=== PATIENT | male | born 1955 | race Caucasian/White ===

== ENCOUNTER → 2022-04-25 | Day surgery (SDC) | payer OTHER ==
[~2022-04-25] VITALS: Ht 182.9 cm; Wt 81.6 kg
[~2022-04-25] MED LIST: ASPIRIN EC81 MG PO; LIPITOR20 MG PO; LISINOPRIL-HCT1 EACH PO; METFORMIN HCL500 MG PO; PERCOCET 5-3251 EACH PO; STOOL SOFTENER1 EAC2 PO; VENTOLIN HFA IN18 GM INH
[2022-04-25 08:28] LABS: HCT 40.8 % (42.0-52.0); HGB 13.8 g/dl (13.2-18.0); MCH 32.5 pg (25.0-31.0); MCHC 33.8 g/dL (32.0-36.0); RBC 4.25 M/uL (4.70-6.00); RDW 13.3 % (11.5-14.0); WBC 14.4 K/uL (4.0-10.5)
[2022-04-25 08:46] LABS: ALBUMIN 3.7 g/dL (3.4-5.0); BILIRUBIN - TOTAL 0.4 mg/dL (0.2-1.0); BUN/CREAT RATIO (CALC) 8.2 RATIO; CREATININE 0.98 mg/dL (0.67-1.17); GLOBULIN (CALCULATION) 3.1 g/dL; POTASSIUM 3.8 mmol/L (3.5-5.1); TOTAL PROTEIN 6.8 g/dL (6.4-8.2)
== END | disposition home or self-care (01) ==
LOC: FAS 07:48
PROVIDERS: Surgery
DX: K59.00 Constipation, unspecified (principal); K63.89 Other specified diseases of intestine; E78.5 Hyperlipidemia, unspecified; I10 Essential (primary) hypertension; E11.9 Type 2 diabetes mellitus without complications; J44.9 Chronic obstructive pulmonary disease, unspecified; F17.210 Nicotine dependence, cigarettes, uncomplicated; Z86.010 Personal history of colon polyps; Z79.899 Other long term (current) drug therapy; Z79.82 Long term (current) use of aspirin; Z79.84 Long term (current) use of oral hypoglycemic drugs
CPT/HCPCS: 36415; 80053; J0690; J2704; J7120